=== PATIENT | male | born 1945 | race Caucasian/White ===

== ENCOUNTER 2021-02-04 11:36 | Emergency (ER) | payer MEDICARE ==
[~2021-02-04] VITALS: Ht 175.3 cm; Wt 86.4 kg
--- NOTE | 2021-02-04 12:24 | PHYS DOC ---
Past Medical History Additional Past Medical Histor: enlarged prostate Past Surgical History: No Surgical History General Adult EDM: Chief Complaint: NEAR SYNCOPE HPI: HPI: Patient is a 75 year old male who presents with was out in the heat going around him neighborhood and fixing things he has pain today. He stated that he is not the best drinking fluids. He stated that today he started feeling lightheaded so he went and got back in his car and sat there in the air conditioning. He said he started feeling better so he went ahead and drove home. He states he got in his driveway to get out of car realize she still was not feeling very good. He is a that he sat there little bit longer. He states then he decided he was feeling better so he got out of the car and begin to pass out but his neighbor saw him leaning against his car in grabbed him and brought him down to the ground. Patient states that at that time he broke out into a cold sweat. He stated that all he had this morning to eat with some cherries. He states he does drink (1)16 ounce beer a day. Patient has a history of a enlarged prostate and high blood pressure. He was a former smoker 20 years ago. Patient denies chest pain, nausea, vomiting, diarrhea, fever, cough, shortness of breath, headache, vision changes Review of Systems: Review of Systems: Constitutional: Denies fever or chills. [] Eyes: Denies change in visual acuity. [] HENT: Denies nasal congestion or sore throat. [] Respiratory: Denies cough or shortness of breath. [] Cardiovascular: Denies chest pain or edema. [] GI: Denies abdominal pain, nausea, vomiting, bloody stools or diarrhea. [] : Denies dysuria. [] Musculoskeletal: Denies back pain or joint pain. [] Integument: Denies rash. [] Neurologic: Denies headache, focal weakness or sensory changes. + Syncopal episode [] Endocrine: Denies polyuria or polydipsia. [] Lymphatic: Denies swollen glands. [] Psychiatric: Denies depression or anxiety. [] Heart Score: C/O Chest Pain: No HEART Score for Chest Pain: HEART Score for Chest Pain Response (Comments) Value History Slighlty/Non-Suspicious 0 ECG Normal 0 Age > 65 2 Risk Factors 1 or 2 Risk Factors 1 Troponin < Normal Limit 0 Total 3 Risk Factors: Risk Factors: DM, Current or recent (<one month) smoker, HTN, HLP, family history of CAD, obesity. Risk Scores: Score 0 - 3: 2.5% MACE over next 6 weeks - Discharge Home Score 4 - 6: 20.3% MACE over next 6 weeks - Admit for Clinical Observation Score 7 - 10: 72.7% MACE over next 6 weeks - Early Invasive Strategies Allergies: Allergies: Allergies Coded Allergies Type Severity Reaction Last Updated Verified No Known Drug Allergies 02/04/21 No Physical Exam: PE: Constitutional: Well developed, well nourished, no acute distress, non-toxic appearance. [] HENT: Normocephalic, atraumatic, bilateral external ears normal, oropharynx moist, no oral exudates, nose normal. [] Eyes: PERRLA, EOMI, conjunctiva normal, no discharge. [] Neck: Normal range of motion, no tenderness, supple, no stridor. [] Cardiovascular:Heart rate regular rhythm, no murmur [] Lungs & Thorax: Bilateral breath sounds clear to auscultation [] Abdomen: Bowel sounds normal, soft, no tenderness, no masses, no pulsatile masses. [] Skin: Warm, dry, no erythema, no rash. [] Back: No tenderness, no CVA tenderness. [] Extremities: No tenderness, no cyanosis, no clubbing, ROM intact, no edema. [] Neurologic: Alert and oriented X 3, normal motor function, normal sensory function, no focal deficits noted. [] Psychologic: Affect normal, judgement normal, mood normal. [] Normal physical exam Current Patient Data: Vital Signs: Vital Signs Date Time Temp Pulse Resp B/P (MAP) Pulse Ox O2 Delivery O2 Flow Rate FiO2 02/04/21 11:38 97.6 65 18 102/54 97 Room Air 97.6 EKG: EK and read by Dr. Mueller is sinus rhythm and no STEMI Radiology/Procedures: Radiology/Procedures: [] Impression: [facility] [address] [place] [address] IMAGING REPORT Signed PATIENT: ELIE FLORESCCOUNT: [id number] : 1945 LOCATION: ER AGE: 75 SEX: M EXAM STATUS: PRE ER ORD. PHYSICIAN: BE MI APRN REASON: syncope PROCEDURE: CT HEAD WO CONTRAST CT HEAD INDICATION: Syncope COMPARISON: None Available. Exposure: One or more of the following individualized dose reduction techniques were utilized for this examination: 1. Automated exposure control 2. Adjustment of the mA and/or kV according to patient size 3. Use of iterative reconstruction technique TECHNIQUE: 5 mm contiguous axial images were obtained from the skull base to the vertex in both bone and soft tissue algorithm. FINDINGS: No abnormal attenuation within the brain parenchyma. No evidence of acute intracranial hemorrhage. No extra-axial fluid collections. No mass effect or midline shift. Ventricular size is appropriate. Basal cisterns are patent. No fractures identified.Duarte-white differentiation is preserved.Globes and orbits are within normal limits. Paranasal sinuses and mastoid air cells are clear. IMPRESSION: No acute intracranial findings. Electronically signed by: Karlos Peña MD (02/04/2021 1:26 PM) [id number] DICTATED and SIGNED BY: KARLOS PEÑA MD DATE: 02/04/21 [id number] [facility] [address] [place], [place] [id number] IMAGING REPORT Signed PATIENT: DEBRA FLORES: [id number] : 1945 LOCATION: ER AGE: 75 SEX: M EXAM STATUS: PRE ER ORD. PHYSICIAN: BE MI APRN REASON: ams PROCEDURE: PORTABLE CHEST 1V EXAM: CHEST 1 VIEW History: Altered mental status COMPARISON: None available. TECHNIQUE: Single portable radiograph of the chest FINDINGS: The cardiac silhouette is unremarkable. Mild bibasilar lung airspace opacities. The costophrenic sulci are clear and well demarcated. IMPRESSION: Mild bibasilar lung airspace opacities likely atelectasis or infiltrates. Electronically signed by: Karlos Peña MD (02/04/2021 1:19 PM) [id number] DICTATED and SIGNED BY: KARLOS PEÑA MD DATE: 02/04/21 [id number] 0 Course & Med Decision Making: Course & Med Decision Making Pertinent Labs and Imaging studies reviewed. (See chart for details) COVID-19 CRITERIA: The patient was evaluated during the global COVID-19 pandemic, and that diagnosis was suspected/considered upon their initial presentation. Their evaluation, treatment and testing was consistent with current guidelines for patients who present with complaints or symptoms that may be related to COVID-19. See HPI. Alert and oriented x4. Ambulatory with steady gait. Skin pink warm and dry. Orthostatics are normal. PERRLA. Moving all extremities. EKG shows sinus rhythm and no STEMI. Patient's states he is feeling completely normal at this time. He has no complaints at this time. Lungs are clear all station all lobes. No extremity edema. He states that this afternoon at 3:00 he actually had a appointment with Dr. Wyman. Chest xray showing opacities or atelectasis. WBC 12. Patient states he is still feeling fine. I spoke with Dr Wyman who states as long as the patietn promises to stay inside and drink plenty of fluids he can go home and follow up with him. [] [place] Disclaimer: Dragon Disclaimer: This electronic medical record was generated, in whole or in part, using a voice recognition dictation system. Departure Departure Impression: Primary Impression: Syncope Qualified Codes: R55 - Syncope and collapse Additional Impression: Person under investigation for COVID-19 Disposition: 01 HOME / SELF CARE / HOMELESS Condition: STABLE Patient Instructions: Dehydration, Adult, Syncope Additional Instructions: Call Dr Wyman to get a follow up appointment. Drink plenty of fluids. Stay inside and out of the heat. If you begin to feel light headed, pass out, have chest pain or soa return to the emergency room. BE MI APRN Feb 04, 2021 12:24
[2021-02-04] MEDS ORDERED: IV NORMAL SALINE 1000ML BAG 1,000 ML IV ONE (13:00)
[2021-02-04 13:04] LABS: BASO % 0 % (0-3); EOS # 0.1 x10^3/uL (0.0-0.7); EOS % 1 % (0-3); HEMATOCRIT 35.8 % (39.0-53.0); LYMPH # 0.5 x10^3/uL (1.0-4.8); LYMPH % 8 % (24-48); MEAN CORPUSCULAR HEMOGLOBIN 33 pg (25-35); MEAN CORPUSCULAR HGB CONC 34 g/dL (31-37); MEAN CORPUSCULAR VOLUME 99 fL (79-100); MONO # 0.5 x10^3/uL (0.0-1.1); MONO % 8 % (0-9); NEUT # 5.3 x10^3/uL (1.8-7.7); NEUT % 82 % (31-73); PLATELET COUNT 182 x10^3/uL (140-400); RED BLOOD COUNT 3.62 x10^6/uL (4.30-5.70); WHITE BLOOD COUNT 6.4 x10^3/uL (4.0-11.0)
[2021-02-04 13:11] LABS: BILIRUBIN,URINE NEGATIVE (NEG); CLARITY,URINE CLEAR; COLOR,URINE YELLOW; NITRITE,URINE NEGATIVE (NEG); PH,URINE 6.5 (<5.0-8.0); PROTEIN,URINE NEGATIVE (NEG-TRACE); UROBILINOGEN,URINE 0.2 mg/dL (0.2 mg/dL)
[2021-02-04 13:22] LABS: CALCIUM 7.6 mg/dL (8.5-10.1); CREATININE 1.1 mg/dL (0.7-1.3); GFR 65.4; POTASSIUM 4.2 mmol/L (3.5-5.1)
--- NOTE | 2021-02-04 13:22 | RAD ---
EXAM: CHEST 1 VIEW History: Altered mental status COMPARISON: None available. TECHNIQUE: Single portable radiograph of the chest FINDINGS: The cardiac silhouette is unremarkable. Mild bibasilar lung airspace opacities. The costop hrenic sulci are clear and well demarcated. IMPRESSION: Mild bibasilar lung airspace opacities likely atelectasis or infiltrates. Electronically signed by: Karlos Peña MD (02/04/2021 1:19 PM) [id number]
[2021-02-04 13:29] LABS: BACTERIA,URINE 0 /HPF (0-FEW); HYALINE CASTS, URINE FEW /HPF; RBC,URINE 0 /HPF (0-2); WBC,URINE OCC /HPF (0-4)
[2021-02-04 13:29] LABS: ALBUMIN 3.1 g/dL (3.4-5.0); MAGNESIUM 2.2 mg/dL (1.8-2.4); TOTAL BILIRUBIN 0.4 mg/dL (0.2-1.0); TOTAL PROTEIN 6.2 g/dL (6.4-8.2)
--- NOTE | 2021-02-04 13:29 | RAD ---
CT HEAD INDICATION: Syncope COMPARISON: None Available. Exposure: One or more of the following individualized dose reduction techniques were utilized for thi s examination: 1. Automated exposure control 2. Adjustment of the mA and/or kV according to patient size 3. Use of iterative reconstruction technique TECHNIQUE: 5 mm contiguous axial images were obtained from the skull base to the vertex in both bone and soft tissue algorithm. FINDINGS: No abnormal attenuation within the brain parenchyma. No evidence of acute intracranial hemorrhage. No extra-axial fluid collections. No mass effect or midline shift. Ventricular size is appropriate. Basal cisterns are patent. No fractures identified.Duarte-white differentiation is preserved.Globes and orbits are within normal l imits. Paranasal sinuses and mastoid air cells are clear. IMPRESSION: No acute intracranial findings. Electronically signed by: Karlos Peña MD (02/04/2021 1:26 PM) [id number]
[2021-02-04 14:59] VITALS: BP 109/62
--- NOTE | 2021-02-04 16:34 | EKG ---
[facility] [address] [place] [address] Test Date: 2021-02-04 Test Time: 11:47:51 Pat Name: WALDEMAR FLORES Department: Room: Gender: Line Director: : 1945 Requested By: BE MI Order Number: [id number] Reading MD: Measurements Intervals [place] Rate: 65 P: 48 WA: 202 QRS: -5 QRSD: 94 T: 24 QT: 424 QTc: 446 Interpretive Statements SINUS RHYTHM LEFTWARD AXIS OTHERWISE NORMAL ECG RI6.01 No previous ECG available for comparison
--- NOTE | 2021-02-05 17:49 | NUR ---
IP: Informed pt of negative covid test. Pt verbalized understanding.
== END 2021-02-04 15:30 | disposition home or self-care (01) ==
LOC: ER 11:36
DX: R55 Syncope and collapse (principal); Z20.822 Contact with and (suspected) exposure to COVID-19
CPT/HCPCS: 36415; 70450; 71045; 80053; 81001; 82550; 83735; 83880; 84484; 85025; 87426; 93005; 96360; 99284; G0480; J7030; U0003; U0005